=== PATIENT | female | born 1980 | race Caucasian/White ===

== ENCOUNTER → 2017-04-15 | Outpatient (CLI) | payer BC ==
[2017-04-15 16:09] LABS: AMPHETAMINE NEG (NEG); BARBITURATES NEG (NEG); BENZODIAZEPINES NEG (NEG); COCAINE NEG (NEG); MARIJUANA NEG (NEG); OPIATES NEG (NEG); TRICYCLIC ANTIDEPRESSANTS NEG (NEG); U METHADONE NEG (NEG)
[2017-04-15 16:32] LABS: THYROID STIMULATING HORMONE 1.11 uIU/ml (0.34-5.60)
[2017-04-15 16:39] LABS: FREE THYROXIN (T4) 1.02 ng/dL (0.58-1.64)
[2017-04-18 06:23] LABS: HEP C AB (HEPPAN) Nonreactive (Nonreactive); HEP C AB SIGNAL TO CUTOFF 0.03 ratio (<1.00)
== END | disposition home or self-care (01) ==
LOC: CLAB 14:54
PROVIDERS: Nurse Practitioner Women's Health
DX: Z32.01 Encounter for pregnancy test, result positive (principal)
CPT/HCPCS: 36415; 80307; 83036; 84439; 84443; 84702; 86787; 86803; 87806

== ENCOUNTER → 2017-04-23 | Outpatient (CLI) | payer BC ==
[2017-04-23 15:48] LABS: HEMATOCRIT 40.7 % (35.0-45.0); HEMOGLOBIN 13.6 gm/dL (12.0-16.0); MEAN CELL VOLUME 90.4 FL (83-96); MEAN CORPUSCULAR HEMOGLOBIN 30.3 PG (28-34); MEAN CORPUSCULAR HGB CONC 33.5 g/dL (30-36); MEAN PLATELET VOLUME 8.5 FL (6.5-11.5); RED BLOOD COUNT 4.5 X10e (3.90-5.30); RED CELL DISTRIBUTION WIDTH 13.1 % (11.0-15.5); WHITE BLOOD COUNT 9.6 X10e3 (4.0-10.5)
[2017-04-25 11:06] LABS: RUBELLA IGM ANTIBODY <20.00 AU/mL (<20.00); RUBELLA IgG ANTIBODY 5.07 Index (>=1.00)
== END | disposition home or self-care (01) ==
LOC: CLAB 15:30
PROVIDERS: Internal Medicine
DX: Z34.90 Encounter for supervision of normal pregnancy, unspecified, unspecified trimester (principal)
CPT/HCPCS: 36415; 85027; 86592; 86706; 86762; 86850; 86900; 86901

== ENCOUNTER → 2017-05-15 | Outpatient (CLI) | payer BC ==
[2017-05-15 16:29] LABS: THYROID STIMULATING HORMONE 0.61 uIU/ml (0.34-5.60)
[2017-05-15 16:36] LABS: FREE THYROXIN (T4) 0.97 ng/dL (0.58-1.64)
== END | disposition home or self-care (01) ==
LOC: CLAB 15:12
PROVIDERS: Nurse Practitioner Family
DX: E03.9 Hypothyroidism, unspecified (principal)
CPT/HCPCS: 36415; 84439; 84443